=== PATIENT | female | born 1975 | race African-American/Black ===

== ENCOUNTER 2019-11-08 12:17 | Emergency (ER) | payer OTHER ==
[~2019-11-08] VITALS: Ht 170.2 cm; Wt 120.7 kg
[2019-11-08 12:29] VITALS: BP 153/107
[2019-11-08] MEDS ORDERED: NORCO 5-325 TA1 EAC1 PO (13:39)
[2019-11-08] MEDS ORDERED: CYCLOBENZAPRINE5 MG PO (13:39)
[2019-11-08] MEDS ORDERED: MEDROLDOSEPACK PO (13:39)
== END 2019-11-08 13:52 | disposition home or self-care (01) ==
LOC: ER 12:17
DX: M54.5 Low back pain (principal); G89.29 Other chronic pain